=== PATIENT | female | born 1925 | race Caucasian/White ===

== ENCOUNTER → 2016-08-16 | Outpatient (CLI) | payer OTHER ==
[2016-08-16 15:02] LABS: BILIRUBIN,URINE NEGATIVE (NEG); CLARITY,URINE CLEAR (CLEAR); GLUCOSE, URINE (UA) NEGATIVE (NEG); LEUKOCYTE ESTERASE ,URINE SMALL (NEG); NITRATE,URINE POSITIVE (NEG); OCCULT BLOOD,URINE SMALL (NEG); PH,URINE 5.5 (5.0-8.5); PROTEIN,URINE TRACE mg/dl (NEG); UROBILINOGEN,URINE 0.2 mg/dL (0.2)
[2016-08-16 15:03] LABS: BASOPHILS # (AUTO) 0.04 10*3/UL; BASOPHILS % (AUTO) 0.5 % (0-1); EOSINOPHILS % (AUTO) 3.2 % (0-8); HEMATOCRIT 44.3 % (37.0-47.0); HEMOGLOBIN 14.1 g/dL (12.0-16.0); IMM GRAN % (AUTO) 0.1 % (0-5); IMM GRAN# (AUTO) 0.01 10*3/UL; LYMPHOCYTES # (AUTO) 1.92 10*3/uL; LYMPHOCYTES % (AUTO) 22.8 % (10-50); MEAN CORPUSCULAR HEMOGLOBIN 28.4 PG (27-31); MEAN CORPUSCULAR HGB CONC 31.8 g/dL (33-37); MEAN PLATELET VOLUME 10.2 FL (7.4-12.2); MONOCYTES # (AUTO) 0.59 10*3/UL (0.3-0.8); NEUTROPHILS # (AUTO) 5.58 10*3/UL; NEUTROPHILS % (AUTO) 66.4 % (50-80); PLATELET MORPHOLOGY COMMENT NORMAL MORPHOLOGY (NORM); RDW COEFFICIENT OF VARIATION 13.4 % (11.5-14.5); RED BLOOD COUNT 4.97 10^6/uL (4.20-5.40); WHITE BLOOD COUNT 8.41 10^3/uL (4.8-10.8)
[2016-08-16 15:11] LABS: URINE SAMPLE TYPE VOIDED SPECIMEN
[2016-08-16 15:12] LABS: RENAL EPITHELIAL CELLS,URINE FEW; SQUAMOUS EPITHELIAL CELL,UR MODERATE; WBC,URINE 20-40
[2016-08-16 15:13] LABS: BACTERIA,URINE MODERATE; URINE CRYSTALS MANY
[2016-08-16 15:15] LABS: BILIRUBIN,TOTAL 0.4 mg/dL (0.3-1.2); BUN/CREATININE RATIO 22.85 (6-20); CALCIUM 11.2 mg/dL (8.7-10.7); CREATININE 0.7 mg/dL (0.50-1.20); POTASSIUM 4.3 meq/L (3.8-5.2)
== END ==
LOC: MOB LAB 14:13
PROVIDERS: ATTEND Nurse Practitioner
DX: R41.89 Other symptoms and signs involving cognitive functions and awareness (principal); I10 Essential (primary) hypertension; R35.0 Frequency of micturition; R82.99 Other abnormal findings in urine
CPT/HCPCS: 36415; 80053; 81001; 82306; 82607; 84443; 85025; 87088